=== PATIENT | male | born 1970 | race Caucasian/White ===

== ENCOUNTER 2021-08-13 10:20 | Inpatient (IN) | payer BC ==
[2021-08-13] MEDS ORDERED: Diltiazem 125 MG/25 ML ONE (11:07)
[2021-08-13 11:51] LABS: #Eosinphils 0.1 thou/uL (0.0-0.7); #Lymphocytes 1.6 thou/uL (1.20-3.40); #Monocytes 0.7 thou/uL (0.11-0.59); #Neutrophils 7.9 thou/uL (1.40-6.50); %Basophils 0.3 % (0.0-1.0); %Eosinophils 0.8 % (0.0-10.0); %Lymphocytes 15.4 % (21.0-51.0); %Monocytes 6.6 % (0.0-10.0); %Neutrophils 76.9 % (42.0-75.0); Hemoglobin 15.8 g/dL (14.0-18.0); Mean Corpuscular HGB CONC 33.5 g/dL (32.0-36.0); Mean Corpuscular Hemoglobin 28.1 pg (27.0-31.0); Mean Platelet Volume 6.6 fL (7.4-10.4); Platelet Count 261 thou/uL (130-400); RBC Distribution Width 13.8 % (11.5-14.5); Red Blood Cell (RBC) Count 5.63 mill/uL (4.70-6.10); White Blood Cell (WBC) Count 10.3 thou/uL (4.8-10.8)
[2021-08-13 12:07] LABS: ALT (SGPT) 15 U/L (8-55); AST (SGOT) 19 U/L (5-34); Albumin 4.3 g/dL (3.5-5.0); Alkaline Phosphatase 63 U/L (40-110); Anion Gap 15 mmol/L (10-20); BUN (Urea Nitrogen) 19 mg/dL (8.4-25.7); Bilirubin, Total 0.3 mg/dL (0.2-1.2); Calc. Creatinine Clearance 0 mL/min (70-130); Calcium 9.5 mg/dL (7.8-10.44); Carbon Dioxide 22 mmol/L (22-29); Chloride 107 mmol/L (98-107); Globulin 3.7 g/dL (2.4-3.5); Glucose 120 mg/dL (70-105); Lipase 9 U/L (8-78); Potassium 4.7 mmol/L (3.5-5.1); Sodium 139 mmol/L (136-145)
[2021-08-13] MEDS ORDERED: Acetaminophen 325 MG TAB PO PRN (13:26)
[2021-08-13] MEDS ORDERED: Ondansetron PF 4 MG/2 ML Vial IVP PRN (13:26)
[2021-08-13] MEDS ORDERED: Nitroglycerin 0.4 MG TAB (25 Tab Bottle) SL SCH (13:30)
[2021-08-13] MEDS ORDERED: Diltiazem 125 MG in Sodium Chloride 0.9% 100 ML IVPB SCH (14:15)
[2021-08-13 14:16] LABS: Prothrombin Time 12.7 sec (12.0-14.7)
[2021-08-13 15:13] LABS: Troponin I Less than 0.010 ng/mL (< 0.028)
[2021-08-13 18:36] VITALS: BMI 29.6
[2021-08-13 20:15] LABS: Troponin I Less than 0.010 ng/mL (< 0.028)
[2021-08-13] MEDS: Lisinopril 2.5 MG TAB PO SCH ×2 (20:36→20:39)
[2021-08-14] MEDS: Icosapent Ethyl 1 GM CAPSULE FS SCH ×3 (00:01→16:42)
[2021-08-14] MEDS: Enoxaparin Sodium 120 MG/0.8 ML SYRINGE SC SCH ×2 (00:01→08:46)
[2021-08-14] MEDS: Enoxaparin Sodium 30 MG/0.3 ML SYRINGE SC SCH ×2 (00:02→08:41)
[2021-08-14 00:38] LABS: SARS-CoV-2 PCR by NAA Not Detected (NotDetected)
[2021-08-14 05:21] LABS: Anion Gap 12 mmol/L (10-20); BUN (Urea Nitrogen) 18 mg/dL (8.4-25.7); Calc. Creatinine Clearance 274 mL/min (70-130); Calcium 8.9 mg/dL (7.8-10.44); Carbon Dioxide 22 mmol/L (22-29); Chloride 107 mmol/L (98-107); Glucose 114 mg/dL (70-105); Potassium 3.9 mmol/L (3.5-5.1); Sodium 137 mmol/L (136-145)
[2021-08-14 06:08] LABS: #Basophils 0.1 thou/uL (0.0-0.2); #Eosinphils 0.2 thou/uL (0.0-0.7); #Lymphocytes 2.6 thou/uL (1.20-3.40); #Monocytes 0.7 thou/uL (0.11-0.59); #Neutrophils 5.8 thou/uL (1.40-6.50); %Basophils 0.8 % (0.0-1.0); %Lymphocytes 27.7 % (21.0-51.0); %Monocytes 7.8 % (0.0-10.0); %Neutrophils 61.8 % (42.0-75.0); Hemoglobin 14.2 g/dL (14.0-18.0); Mean Corpuscular HGB CONC 32.6 g/dL (32.0-36.0); Mean Corpuscular Hemoglobin 27.6 pg (27.0-31.0); Mean Corpuscular Volume 84.6 fL (78.0-98.0); Mean Platelet Volume 6.7 fL (7.4-10.4); Platelet Count 233 thou/uL (130-400); RBC Distribution Width 13.8 % (11.5-14.5); Red Blood Cell (RBC) Count 5.14 mill/uL (4.70-6.10); White Blood Cell (WBC) Count 9.3 thou/uL (4.8-10.8)
[2021-08-14] MEDS ORDERED: Prasugrel 10 MG TAB PO SCH (09:00)
[2021-08-14] MEDS ORDERED: Aspirin 325 mg Enteric Coated Tablet PO SCH (09:00)
[2021-08-14] MEDS: Lisinopril 2.5 MG TAB PO SCH ×2 (11:15→20:28)
[2021-08-14] MEDS ORDERED: Dextrose 5% in Water 1,000 ML IV PRN (12:44)
[2021-08-14] MEDS ORDERED: Dextrose 50% Abboject 50 ML SYRINGE SLOW IVP PRN (12:44)
[2021-08-14] MEDS ORDERED: HumaLOG 300 UNITS/3 ML VIAL SC PRN (12:44)
[2021-08-14] MEDS ORDERED: Diltiazem 125 MG in Sodium Chloride 0.9% 100 ML IVPB SCH (17:15)
[2021-08-14] MEDS ORDERED: Dronedarone HCl 400 MG TAB PO SCH (17:15)
[2021-08-14] MEDS: Apixaban 5 MG TAB PO SCH (20:29)
[2021-08-14] MEDS ORDERED: Simvastatin 10 MG TAB PO SCH (21:00)
[2021-08-15 05:21] LABS: Cardiac Risk 3.3 (Less than 4.5)
[2021-08-15] MEDS ORDERED: Dronedarone HCl 400 MG TAB PO SCH (08:00)
[2021-08-15] MEDS ORDERED: Aspirin 81 mg Enteric Coated Tablet PO SCH (09:00)
[2021-08-15] MEDS: Icosapent Ethyl 1 GM CAPSULE FS SCH (09:06)
[2021-08-15] MEDS: Apixaban 5 MG TAB PO SCH (09:07)
[2021-08-15] MEDS: Lisinopril 2.5 MG TAB PO SCH (09:07)
[2021-08-15 11:31] VITALS: BP 157/86; TEMP 97.6
== END 2021-08-15 15:05 | disposition home or self-care (01) | DRG 309 ==
LOC: ERS 10:20 → OBSVTOIN 13:26 → ERHOLD 13:26 → 2NO 18:20
PROVIDERS: ADMIT Internal Medicine; ATTEND Internal Medicine
DX: I48.91 Unspecified atrial fibrillation (principal); Z68.44 Body mass index [BMI] 60.0-69.9, adult; I50.30 Unspecified diastolic (congestive) heart failure; Z20.822 Contact with and (suspected) exposure to COVID-19; I34.0 Nonrheumatic mitral (valve) insufficiency; I25.10 Atherosclerotic heart disease of native coronary artery without angina pectoris; E66.01 Morbid (severe) obesity due to excess calories; E78.2 Mixed hyperlipidemia; I11.0 Hypertensive heart disease with heart failure; R73.03 Prediabetes; Z95.5 Presence of coronary angioplasty implant and graft; I25.2 Old myocardial infarction; Z79.899 Other long term (current) drug therapy; Z79.84 Long term (current) use of oral hypoglycemic drugs; Z79.82 Long term (current) use of aspirin; Z88.8 Allergy status to other drugs, medicaments and biological substances
CPT/HCPCS: 36415; 36416; 71045; 80048; 80053; 80061; 83690; 84443; 84484; 85025; 85610; 85730; 93005; 93306; 94760; 96365; 96366; 96372; 96376; J1650; U0003; U0005

== ENCOUNTER 2023-05-21 23:39 | Observation (INO) | payer BC ==
[2023-05-22] MEDS ORDERED: Metoprolol Tartrate 50 MG TAB ONE (00:36)
[2023-05-22 00:56] LABS: #Basophils 0.1 thou/uL (0.0-0.2); #Eosinphils 0.2 thou/uL (0.0-0.7); #Monocytes 0.8 thou/uL (0.11-0.59); #Neutrophils 6.1 thou/uL (1.40-6.50); %Basophils 0.7 % (0.0-1.0); %Eosinophils 1.8 % (0.0-10.0); %Lymphocytes 25.3 % (21.0-51.0); %Monocytes 7.9 % (0.0-10.0); Hematocrit 43.5 % (42.0-52.0); Hemoglobin 14.6 g/dL (14.0-18.0); Mean Corpuscular HGB CONC 33.6 g/dL (32.0-36.0); Mean Corpuscular Hemoglobin 28.1 pg (27.0-31.0); Mean Corpuscular Volume 83.8 fl (78.0-98.0); Mean Platelet Volume 8.7 fL (7.4-10.4); Platelet Count 265 10x3/uL (130-400); RBC Distribution Width 13.3 % (11.5-14.5); Red Blood Cell (RBC) Count 5.19 mill/uL (4.70-6.10); White Blood Cell (WBC) Count 9.7 10x3/uL (4.8-10.8)
[2023-05-22 01:19] LABS: ALT (SGPT) 19 U/L (8-55); AST (SGOT) 17 U/L (5-34); Albumin 4.6 g/dL (3.5-5.0); Alkaline Phosphatase 59 U/L (40-110); Anion Gap 16 mmol/L (10-20); BUN (Urea Nitrogen) 19 mg/dL (8.4-25.7); Bilirubin, Total 0.2 mg/dL (0.2-1.2); Calc. Creatinine Clearance 0 mL/min (70-130); Calcium 9.8 mg/dL (7.8-10.44); Carbon Dioxide 23 mmol/L (22-29); Chloride 106 mmol/L (98-107); Estimated GFR 101; Globulin 3.1 g/dL (2.4-3.5); Glucose 108 mg/dL (70-105); Potassium 3.6 mmol/L (3.5-5.1); Protein, Total 7.7 g/dL (6.0-8.3); Sodium 141 mmol/L (136-145)
[2023-05-22 01:30] LABS: Troponin I Less than 0.010 ng/mL (< 0.028)
[2023-05-22] MEDS ORDERED: Metoprolol Tartrate 5 MG/5 ML VIAL ONE ×2 (02:46→03:00)
[2023-05-22] MEDS ORDERED: Aspirin Chewable 81 MG TAB ONE (03:51)
[2023-05-22] MEDS ORDERED: Acetaminophen 325 MG TAB PO PRN (04:07)
[2023-05-22] MEDS ORDERED: Ondansetron PF 4 MG/2 ML Vial IVP PRN (04:07)
[2023-05-22] MEDS ORDERED: dilTIAZem 125 MG in Sodium Chloride 0.9% 100 ML IVPB SCH (04:15)
[2023-05-22] MEDS ORDERED: dilTIAZem 125 MG/25 ML SDV ONE (04:26)
[2023-05-22 06:03] VITALS: BMI 42.4
[2023-05-22 06:17] LABS: Troponin I Less than 0.010 ng/mL (< 0.028)
[2023-05-22 06:21] LABS: Magnesium 2.2 mg/dL (1.6-2.6)
[2023-05-22] MEDS: Aspirin 81 mg Enteric Coated Tablet PO SCH (08:14)
[2023-05-22] MEDS: Dronedarone HCl 400 MG TAB PO SCH ×2 (08:14→16:32)
[2023-05-22] MEDS ORDERED: Sodium Chloride 0.9% 1,000 ML IV SCH (16:15)
[2023-05-22] MEDS ORDERED: Simvastatin 10 MG TAB PO SCH (21:00)
[2023-05-23 04:49] LABS: #Basophils 0.1 thou/uL (0.0-0.2); #Eosinphils 0.2 thou/uL (0.0-0.7); #Monocytes 0.6 thou/uL (0.11-0.59); #Neutrophils 5.2 thou/uL (1.40-6.50); %Basophils 0.9 % (0.0-1.0); %Eosinophils 2.1 % (0.0-10.0); %Lymphocytes 23.4 % (21.0-51.0); %Monocytes 7.5 % (0.0-10.0); %Neutrophils 64.3 % (42.0-75.0); Hemoglobin 13.9 g/dL (14.0-18.0); Mean Corpuscular HGB CONC 33.1 g/dL (32.0-36.0); Mean Corpuscular Hemoglobin 28.5 pg (27.0-31.0); Mean Corpuscular Volume 86.2 fl (78.0-98.0); Mean Platelet Volume 8.7 fL (7.4-10.4); Platelet Count 241 10x3/uL (130-400); RBC Distribution Width 13.4 % (11.5-14.5); Red Blood Cell (RBC) Count 4.87 mill/uL (4.70-6.10); White Blood Cell (WBC) Count 8.1 10x3/uL (4.8-10.8)
[2023-05-23 05:10] LABS: Anion Gap 10 mmol/L (10-20); BUN (Urea Nitrogen) 16 mg/dL (8.4-25.7); Calc. Creatinine Clearance 201 mL/min (70-130); Calcium 9.4 mg/dL (7.8-10.44); Carbon Dioxide 27 mmol/L (22-29); Chloride 105 mmol/L (98-107); Estimated GFR 105; Glucose 99 mg/dL (70-105); Magnesium 2.1 mg/dL (1.6-2.6); Sodium 138 mmol/L (136-145)
[2023-05-23] MEDS ORDERED: Sodium Chloride 0.9% 1,000 ML IV SCH (06:00)
[2023-05-23] MEDS: Aspirin 81 mg Enteric Coated Tablet PO SCH (09:43)
[2023-05-23] MEDS: Dronedarone HCl 400 MG TAB PO SCH (09:43)
[2023-05-23 16:15] VITALS: BP 125/73; TEMP 97.6
== END 2023-05-23 17:50 | disposition home or self-care (01) ==
LOC: ERS 23:39 → 2SW 05-22 04:07
PROVIDERS: ADMIT Internal Medicine; ATTEND Internal Medicine
DX: R00.2 Palpitations (principal); I48.91 Unspecified atrial fibrillation; I25.10 Atherosclerotic heart disease of native coronary artery without angina pectoris; E78.5 Hyperlipidemia, unspecified; E66.9 Obesity, unspecified; I11.0 Hypertensive heart disease with heart failure; I50.32 Chronic diastolic (congestive) heart failure; Z98.890 Other specified postprocedural states; Z88.8 Allergy status to other drugs, medicaments and biological substances; Z79.01 Long term (current) use of anticoagulants; Z79.82 Long term (current) use of aspirin; Z95.5 Presence of coronary angioplasty implant and graft; Z79.899 Other long term (current) drug therapy
CPT/HCPCS: 36415; 71045; 80048; 80053; 83735; 84484; 85025; 93005; 93010; 96361; 96365; 96372; 96375; G0378; J1650; J3490; J7050